=== PATIENT | male | born 1965 | race Caucasian/White ===

== ENCOUNTER 2022-11-07 11:11 | Emergency (ER) | payer OTHER, SELFPAY ==
[2022-11-07 11:15] VITALS: BP 119/79; PULSE 70; RESP 18; O2SAT 96
--- NOTE | 2022-11-07 11:15 | DI.RAD_ITS ---
Exam(s) XR HUMERUS RT EXAM: XR HUMERUS RT CLINICAL HISTORY: shoulder pain, ski injury. TECHNIQUE: 2D digital imaging was performed. COMPARISON: No exams were available for comparison FINDINGS: BONES: No acute fracture is present. No bony destructive lesion is seen. Visualized portion of elbow and shoulder joints are unremarkable. AC joint spurring. Visualized portions of the ribs appear int act. SOFT TISSUE: Normal. Visualized portions of the right lung appear clear. IMPRESSION: Unremarkable radiographs of the right humerus. DATA REPOSITORY: RADIATION DOSE DELIVERED:
--- NOTE | 2022-11-07 11:15 | DI.RAD_ITS ---
Exam(s) XR SHOULDER RT COMPLETE 2+V EXAM: XR SHOULDER RT COMPLETE 2+V CLINICAL HISTORY: shoulder pain, ski injury. TECHNIQUE: 2D digital imaging was performed. Five views. COMPARISON: No exams were available for comparison FINDINGS: BONES: No acute fracture is present. No bony destructive lesion is seen. JOINTS: No dislocation present. Mild spurring AC joint and glenohumeral joint. SOFT TISSUE: Normal. IMPRESSION: No acute abnormality. DATA REPOSITORY: RADIATION DOSE DELIVERED:
[2022-11-07] MEDS: Ketorolac 15 MG/ML VIAL IVP (11:37)
--- NOTE | 2022-11-07 11:47 | ED.GENADUL_ITS ---
Discharge Plan Disposition Patient Disposition: Home Discharge Details Chief Complaint: Orthopedic Clinical Impression: Injury of shoulder Primary Care Provider: Unknown,Unknown ED Provider: Vignesh Bar Home Meds and New Rx's Prescriptions: No Action lisinopril-hydrochlorothiazide 10-12.5 mg Tablet 1 tab PO DAILY rosuvastatin 5 mg Tablet 5 mg PO DAILY Discharge Instructions Instructions: Shoulder Pain (ED) Additional Instructions: Please follow-up with biometrics specialist when you return home. Please return to the emergency department for any worsening symptoms. Ice and use sling as instructed. Acetaminophen and ibuprofen for pain. If you have any issues obtaining specialist follow-up please do not hesitate to call and we can arrange for a local appointment. Medical Decision Making 57-year-old male presents after skiing injury, took a jump off [place], landing on his feet with hands grasping poles that struck directly onto the ground, immediate pain in anterior right shoulder. Limited range of motion due to discomfort, fullness to anterior shoulder region, neurovascular exam of limb intact, however marked decreased range of motion and pain in right shoulder, no clavicular tenderness. No evidence of thoracoabdominal cranial or spinal injury. Consider rotator cuff tear versus bicep tear versus dislocation versus fracture. Screening x-ray, analgesia anti-inflammatory. Likely sling and close orthopedic follow-up. 12: 44 patient resting comfortably feeling better after Toradol. No evidence of fracture or dislocation. Concern for partial rotator cuff and/or bicep injury patient will follow-up with his primary orthopedist at home in [place]. Given home care instructions and return precautions. Will be placed in sling HPI General Date/Time Provider Initiated Documentation: 11/07/22 11:20 . HPI Narrative: 57-year-old male presents after ski accident, went [place] an unintentional jump off a trail, landed on his feet with arm grasping poles that struck directly onto ground, endorses immediate right shoulder pain. No head neck chest abdomen or back injury. Related Data Home Medications Medication Instructions Recorded Confirmed lisinopril 10 1 tab PO DAILY 11/07/22 11/07/22 mg-hydrochlorothiazide 12.5 mg tablet rosuvastatin 5 mg tablet 5 mg PO DAILY 11/07/22 11/07/22 Allergies Allergy/AdvReac Type Severity Reaction Status Date / Time No Known Allergies Allergy Unverified 03/11/23 11:20 General Stated Complaint: Orthopedic CRYSTAL: 3 Review of Systems Narrative: Review of Systems Constitutional: negative Eyes: negative ENT: negative Cardiovascular: negative Respiratory: negative Gastrointestinal: negative : negative Musculoskeletal: Shoulder pain Skin: negative Neurologic: negative Psych: negative PFSH All Active Problems (Updated 11/07/22 @ 12:45 by Vignesh Bar MD) Injury of shoulder (Acute) Social History Smoking/Tobacco Use Status: Current every day Smoking risk assessment performed?: Yes Alcohol Intake: current Alcohol Intake frequency: a few times a week Alcohol type: beer and wine Substance use type: does not use Details: patient uses nicatine vape but no tabacco. Do you feel safe at home: Yes Do you feel safe in your relationship?: Yes Additional Social history: at bedside Exam Narrative Exam Narrative: Physical Examination General: alert, awake, cooperative, resting comfortably, no acute distress HEENT: normocephalic, atraumatic; PERRL, EOM intact, conjunctiva normal; no nasal discharge; moist mucous membranes, oral and pharyngeal mucosa normal, tolerating secretions Neck: supple, trachea midline; full ROM Chest: normal to inspection Respiratory: normal respiratory effort, speaking in full sentences, clear to auscultation, no wheezing, rales or rhonchi Cardiac: regular rate, regular rhythm, S1S2 intact, no murmurs rubs or gallops GI: abdomen soft, non-tender, non-distended; no palpable mass or hepatosplenomegaly Skin: no lesions, rashes or trauma appreciated Neuro: AAOx3, normal speech, moving all extremities Extremities: Right upper extremity held adducted to side, tenderness over anterior shoulder, range of motion limited by pain, no tenderness over clavicle, no elbow forearm wrist or hand pain, median radial and ulnar nerve distribution sensory exam intact, strong radial pulse, flexion extension of fingers intact Psych: Appropriate mood and affect Course Vital Signs Vital signs: Vital Signs Pulse 70 11/07/22 11:15 Respiratory Rate 18 11/07/22 11:15 Blood Pressure 119/79 11/07/22 11:15 Pulse Oximetry 96 11/07/22 11:15 Pulse 70 11/07/22 11:15 Respiratory Rate 18 11/07/22 11:15 Respiratory Effort Normal, Non-Labored 11/07/22 11:22 Blood Pressure 119/79 11/07/22 11:15 Blood Pressure Position Sitting 11/07/22 11:15 Pulse Oximetry 96 11/07/22 11:15 Oxygen Delivery Method Room Air 11/07/22 11:15 Oxygen Flow Rate 0 11/07/22 11:15 Pain Level 5 11/07/22 11:37 PAWSS Have you Been Recently Intoxicated or Drunk Within the Last 30 days?: No Have you Ever Experienced Previous Episodes of Alcohol Withdrawal?: No Have you ever Experienced Withdrawal Seizures?: No Have you ever Experienced Delirium Tremens(DT)s?: No Have you ever undergone Alcohol Rehabilitation Treatment (i.e, inpt ot outpatient treatment programs)?: No Have you ever Experienced Blackouts?: No Have you ever Combined Alcohol with other Downers within the last 90 days?: No Have you ever Combined Alcohol with any other Substance of Abuse during the last 90 days?: No Positive Blood Alcohol level on Presentation? [PCS.BAL]: No Evidence of Increased Autonomic Activity (i.e. HR>120, tremor, sweating, agitation, nausea)?: No Result: 0
--- NOTE | 2022-11-07 12:26 | DI.VRAD_ITS ---
PROCEDURE INFORMATION: Exam: XR Right Shoulder Exam date and time: 11/07/2022 11:59 AM Age: 57 years old Clinical indication: Pain; Shoulder; Right; Patient HX: Fall skiing TECHNIQUE: Imaging protocol: Radiologic exam of the right shoulder. Views: 2 or more views. COMPARISON: No relevant prior studies available. FINDINGS: Bones/joints: Advanced DJD of the acromioclavicular joint. Glenohumeral joint is unremarkable.No acute fracture or dislocation. Soft tissues: Normal. IMPRESSION: No acute findings. Dictated and Authenticated by: Fernanda Hatch MD. Ordering:IAN Medellin MD
--- NOTE | 2022-11-07 12:26 | DI.VRAD_ITS ---
PROCEDURE INFORMATION: Exam: XR Right Humerus Exam date and time: 11/07/2022 11:58 AM Age: 57 years old Clinical indication: Pain; Upper arm; Right; Patient HX: Fall skiing TECHNIQUE: Imaging protocol: Radiologic exam of the right humerus. Views: 2 or more views. COMPARISON: No relevant prior studies available. FINDINGS: Bones/joints: Normal. No acute fracture or dislocation. Soft tissues: Normal. IMPRESSION: No acute findings. Dictated and Authenticated by: Fernanda Hatch MD. Ordering:IAN Medellin MD
[2022-11-07 13:04] VITALS: BP 119/79; PULSE 70; RESP 18; O2SAT 96
== END 2022-11-07 13:05 | disposition home or self-care (01) ==
PROVIDERS: Emergency Provider Emergency Medicine
DX: S49.91XA Unspecified injury of right shoulder and upper arm, initial encounter (principal); V00.321A Fall from snow-skis, initial encounter; Y93.23 Activity, snow (alpine) (downhill) skiing, snowboarding, sledding, tobogganing and snow tubing
CPT/HCPCS: 96374; 96375; 99284; 73030; 73060; J1885